=== PATIENT | female | born 1990 | race Caucasian/White ===

== ENCOUNTER → 2017-03-21 | Outpatient (REF) | LOC: WSOH 16:45 | DX: Z02.89 Encounter for other administrative examinations (principal) ==

== ENCOUNTER 2018-11-20 16:29 | Inpatient (IN) | payer OTHER ==
[~2018-11-20] VITALS: Ht 177.8 cm; Wt 91.8 kg
[2018-11-20] VITALS (23 sets, daily range): BP systolic 113–139; BP diastolic 60–88; PULSE 90–122; TEMP 97.6–97.9
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
[2018-11-20] MEDS ORDERED: PRENATAL (17:17)
[2018-11-20 17:54] LABS: BASO % 0.2 % (0.0-2.0); EOS # 0.1 (0.0-0.7); EOS % 1.3 % (0-4.0); GRAN # 7.2 (1.4-6.5); GRAN % 74.2 % (42.2-75.2); HEMOGLOBIN 12.8 g/dl (12.5-16.0); LYMPH # 1.8 (1.2-3.4); LYMPH % 18.4 % (20.0-51.0); MEAN CELL VOLUME 89 fl (80.0-100.0); MEAN CORPUSCULAR HEMOGLOBIN 31 pg (27.0-31.0); MEAN CORPUSCULAR HGB CONC 35 g/dl (33.0-37.0); MEAN PLATELET VOLUME 10.2 fl (7.4-10.4); MONO # 0.5 (0.1-0.6); MONO % 5.1 % (1.7-9.3); PLATELET COUNT 166 K/mm3 (130-400); RED BLOOD COUNT 4.14 M/mm3 (4.10-5.30); REDCELL DISTRIBUTION WIDTH-CV 13.5 % (11.5-14.5)
--- NOTE | 2018-11-20 18:20 | NUR ---
1820 AMB TO BR TO VOID AND THEN SITTING ON SIDE OF BED FOR EPIDURAL PLACEMENT 1833 SINGLE DOSE GIVEN IN EPID SITE. SEE ANESTH RECORD FOR FURTHER INFO.
--- NOTE | 2018-11-20 21:35 | NUR ---
2135 FHTS NOTED 130 WITH DECREASE TO 100-90 X 120 SECONDS WITH RETURN TO BL. PITOCIN OFF, CERVICAL EXAM DONE. TURNED TO LL WITH PEANUT BALL USED.
--- NOTE | 2018-11-20 23:10 | NUR ---
2310 FHTS BASE 140 DECREASE TO 100-110 FOR 120 SECONDS. PITOCIN DCD POSITION CHANGED.
[2018-11-21] VITALS (13 sets, daily range): BP systolic 98–143; BP diastolic 48–93; PULSE 84–123; TEMP 97.8–99.1
--- NOTE | 2018-11-21 00:30 | NUR ---
0030 COMPLETE AND INSTRUCTED TO PUSH WITH CONTRACTIONS.
--- NOTE | 2018-11-21 00:40 | NUR ---
0040 PUSHING WITH CONTRACTIONS. FHT'S 80-90'S. TURNED TO LEFT SIDE. 0045 DR SALGADO CALLED TO COME TO DELIVERY. CONTS TO PUSH ON SIDE. 0055 DR SALGADO HERE AND READIED FOR DELIVERY. 0100 DEL VIABLE FEMALE OVER 2ND DEGREE LAC WITH 9/9/9 APGARS. IV'S CONT TO INFUSE.
--- NOTE | 2018-11-21 03:15 | NUR ---
0315 IV TO INT. EPID DCD. UNABLE TO USE LEFT LEG AT THIS TIME. PERICARE DONE IN BED WITH ICE PACK ON. TO W/C WITH ASSIST AND TRANSFERRED TO [facility]. SARA WELL
--- NOTE | 2018-11-21 12:00 | NUR ---
Initial visit; Parents thanked Sock Lining Examiner for offering congratulations and God's blessings for the of their daughter.
[2018-11-21] MEDS ORDERED: IBU800 M1 PO (17:24)
[2018-11-21] MEDS ORDERED: PERCOCET 325 MG1 TA2 PO (17:24)
[2018-11-22 07:23] VITALS: BP 106/69; PULSE 96; TEMP 98.2
--- NOTE | 2018-11-22 12:00 | NUR ---
1200- Infant to nursery so mom can sleep. Pt overwhelmed and exhaused.
== END 2018-11-22 17:45 | disposition home or self-care (01) | DRG 806 ==
LOC: LDRO 16:29 → OB 16:45 → LDR 16:45 → OB 11-21 03:15
PROVIDERS: ADMIT Obstetrics & Gynecology
PROC: 10E0XZZ Delivery of Products of Conception, External Approach (ICD-10-PCS; principal; 2018-11-21)
PROC: 0KQM0ZZ Repair Perineum Muscle, Open Approach (ICD-10-PCS; 2018-11-21)
DX: O99.824 Streptococcus B carrier state complicating childbirth (principal); N13.30 Unspecified hydronephrosis; Z37.0 Single live birth; Z3A.38 38 weeks gestation of pregnancy; O99.89 Other specified diseases and conditions complicating pregnancy, childbirth and the puerperium; O70.1 Second degree perineal laceration during delivery; O32.6XX0 Maternal care for compound presentation, not applicable or unspecified
CPT/HCPCS: J2405; J2590; J2795; J3370; J7050; J7120

== ENCOUNTER 2021-04-08 14:40 | Inpatient (IN) | payer BC ==
[2021-04-08] VITALS (27 sets, daily range): BP systolic 100–147; BP diastolic 54–93; PULSE 76–106; TEMP 98.1–98.4
[~2021-04-08] VITALS: Ht 180.3 cm; Wt 88.6 kg
[~2021-04-08 14:40] MED LIST: IBU800 M1 PO; PERCOCET 325 MG1 TA2 PO; PRENATAL
[2021-04-08 15:24] LABS: BASO % 0.2 % (0.0-2.0); EOS # 0.1 K/mm3 (0.0-0.7); EOS % 0.9 % (0-4.0); GRAN # 6.5 K/mm3 (1.4-6.5); GRAN % 75.8 % (42.2-75.2); HEMOGLOBIN 11.4 g/dl (12.5-16.0); LYMPH # 1.5 K/mm3 (1.2-3.4); LYMPH % 17.4 % (20.0-51.0); MEAN CELL VOLUME 87 fl (80.0-100.0); MEAN CORPUSCULAR HEMOGLOBIN 30 pg (27.0-31.0); MEAN CORPUSCULAR HGB CONC 34 g/dl (33.0-37.0); MEAN PLATELET VOLUME 9.9 fl (7.4-10.4); MONO # 0.4 K/mm3 (0.1-0.6); PLATELET COUNT 207 K/mm3 (130-400); RED BLOOD COUNT 3.84 M/mm3 (4.10-5.30); REDCELL DISTRIBUTION WIDTH-CV 12.6 % (11.5-14.5)
[2021-04-08 15:29] LABS: HEMATOCRIT 33.2 % (37.0-47.0)
--- NOTE | 2021-04-08 15:41 | NUR ---
1435 PATIENT HERE FOR COMPLAINTS OF SROM LARGE AMOUNT OF CLEAR FLUID NOTED. ASSESSMENT COMPLATED. EFM ON FHT 125 GOOD ACCELERATIONS NOTED AND BABY VERY ACTIVE. VS WNL. SVE /-3 LARGE AMOUNT CLEAR FLUID, WITH CHECK.
--- NOTE | 2021-04-08 17:39 | NUR ---
1700 PATIENT READY FOR EPIDURAL. L NOLAN LOOM TECHNICIAN AT BEDSIDE FOR PLACEMENT. SEE LOOM TECHNICIAN NOTES. PATIENT TOLERATES WELL, DENIES NEEDS
--- NOTE | 2021-04-08 17:49 | NUR ---
1720 EPHEDRINE 10 MG GIVEN FOR BP 93/55
--- NOTE | 2021-04-08 18:09 | NUR ---
1800 DR SALGADO CALLED AND UPDATEED. NO NEW ORDERS
--- NOTE | 2021-04-08 18:10 | NUR ---
9999 PATIENT REFUSES A COVID SWAB AT THIS TIME
--- NOTE | 2021-04-08 20:30 | NUR ---
1999 PATIENT FEELING SOME PRESSURE. SVE /+2 DR SALGADO CALLED TO ROOM FOR DELIVERY. 2007 BABY BOY BORN VIA , BY DR SALGADO. CORD CLAMPED AND CUT AND BABY TO MOMS CHEST SKIN TO SKIN. DENIES NEEDS 2010PLACENTA DELIVERED AT THIS TIME. PITOCIN STARTED AT 333/HR PER PROTOCOL. DENIES NEEDS. FUNDUS FIRM. SMALL BLEEDING NOTED.
[2021-04-09 04:25] VITALS: BP 108/50; PULSE 95; TEMP 97.8
[2021-04-09] MEDS ORDERED: IBU800 M1 PO (08:28)
[2021-04-09] MEDS ORDERED: BREASTPUMP MC (08:29)
--- NOTE | 2021-04-09 09:43 | NUR ---
Initial visit; Physician with family, Furs Salesperson left card informing the family of the availability of spiritual care at our hospital.
[2021-04-09 11:13] VITALS: BP 101/64; PULSE 88; TEMP 97.9
[2021-04-09 12:56] VITALS: BP 99/54; PULSE 91; TEMP 98.3
[2021-04-09 16:30] VITALS: BP 115/68; PULSE 87; TEMP 98.4
[2021-04-09 20:30] VITALS: BP 103/60; PULSE 77; TEMP 98
[2021-04-10 00:40] VITALS: BP 107/62; PULSE 90; TEMP 97.6
[2021-04-10 08:26] VITALS: BP 114/68; PULSE 76; TEMP 98.1
== END 2021-04-10 10:27 | disposition home or self-care (01) | DRG 807 ==
LOC: LDRO 14:40 → LDR 14:45 → OB 04-09
PROVIDERS: ADMIT Student in an Organized Health Care Education/Training Program
PROC: 10E0XZZ Delivery of Products of Conception, External Approach (ICD-10-PCS; principal; 2021-04-08)
DX: O99.284 Endocrine, nutritional and metabolic diseases complicating childbirth (principal); Z37.0 Single live birth; E28.2 Polycystic ovarian syndrome; O35.9XX0 Maternal care for (suspected) fetal abnormality and damage, unspecified, not applicable or unspecified; O99.892 Other specified diseases and conditions complicating childbirth; M51.26 Other intervertebral disc displacement, lumbar region; Z3A.37 37 weeks gestation of pregnancy
CPT/HCPCS: J2405; J2590; J7120